=== PATIENT | female | born 1990 | race Caucasian/White ===

== ENCOUNTER → 2022-02-02 22:00 | Observation (INO) | END | disposition home or self-care (01) | LOC: 1NENULAB | PROVIDERS: ADMIT Obstetrics & Gynecology; ATTEND Obstetrics & Gynecology ==

== ENCOUNTER → 2022-02-04 23:40 | Observation (INO) | END | disposition home or self-care (01) | LOC: 1NENULAB | PROVIDERS: ADMIT Advanced Practice Midwife; ATTEND Advanced Practice Midwife ==

== ENCOUNTER 2022-02-14 07:18 | Inpatient (IN) ==
[~2022-02-14 07:18] MED LIST: Famotidine 20 MG/2 ML VIAL IVP PRN; Metoclopramide 10 MG/2 ML VIAL IVP PRN; Naloxone 0.4 MG/ML INJ IVP PRN
[2022-02-14] MEDS: Ringers Solution, Lactated 1,000 ML IVC SCH ×2 (07:49→11:00)
[2022-02-14 08:08] LABS: Basophils % 0.4 %; Eosinophils # 0.1 K/mcL (0.0-0.6); Eosinophils % 0.9 %; Hematocrit 40.6 % (35.3-44.9); Hemoglobin 13.2 g/dL (11.5-15.4); Immature Granulocytes % 0.7 % (0-4); Lymphocytes % 27.2 %; Mean Corpuscular HGB Conc 32.5 g/dL (31.6-35.5); Mean Corpuscular Hemoglobin 30.6 pg (28.0-33.3); Mean Platelet Volume 12.3 fL (9.4-12.4); Monocytes # 0.7 K/mcL (0.0-1.3); Monocytes % 6.8 %; Neutrophils # 6.9 K/mcL (1.6-8.9); Platelet Count 193 K/mcL (140-400); Red Blood Count 4.32 M/mcL (3.82-4.97); Red Cell Distribution Width 12.8 % (11.5-14.5); White Blood Count 10.8 K/mcL (4.3-11.1)
[2022-02-14] MEDS ORDERED: Naloxone 0.4 MG/ML INJ IVP PRN (08:18)
[2022-02-14] MEDS ORDERED: Penicillin G Potassium 5,000,000 UNIT in 0.9 % Sodium Chloride Mini Bag 100 ML IVPB ONE (08:18)
[2022-02-14] MEDS ORDERED: Ropivacaine/PF 0.2% 20 ML VIAL EP ONE (08:18)
[2022-02-14] MEDS ORDERED: Ondansetron 4 MG/2 ML VIAL IVP PRN (08:18)
[2022-02-14] MEDS ORDERED: EPHEDrine 50 MG/ML VIAL IVP PRN (08:18)
[2022-02-14 08:24] LABS: Creatinine,Urine 99 mg/dL; Protein/Creatinine Ratio,Urine 0.66 mg/mg (0.00-0.20)
[2022-02-14] MEDS ORDERED: Epidural Premix (fent/bupiv) 110 ML EP SCH (08:30)
[2022-02-14] MEDS ORDERED: Oxytocin 30 UNIT/503 ML BAG IVC ONE (08:30)
[2022-02-14 08:36] LABS: Influenza A PCR Negative (Negative); Influenza B PCR Negative (Negative); Resp. Syncytial Virus PCR Negative (Negative)
[2022-02-14 08:39] LABS: SARS-CoV-2 by PCR (In House) Negative (Negative)
[2022-02-14 08:53] LABS: Alanine Aminotransferase 14 Units/L (7-52); Aspartate Amino Transferase 17 Units/L (13-39); BUN/Creatinine Ratio 14 (6-26); Blood Urea Nitrogen 8 mg/dL (6-20); Lactate Dehydrogenase 197 Units/L (140-271); Uric Acid 4.4 mg/dL (2.3-7.6); eGFR For African Americans > 60 (> 60); eGFR For Non-African Americans > 60 (> 60)
[2022-02-14 09:38] LABS: Amphetamine Screen,Urine Negative ng/mL (Cutoff=1000); Barbiturate Screen,Urine Negative ng/mL (Cutoff=200); Benzodiazepines Screen,Urine Negative ng/mL (Cutoff=200); Cannabinoid Screen,Urine Negative ng/mL (Cutoff = 50); Cocaine Screen,Urine Negative ng/mL (Cutoff= 300); Opiate Screen,Urine Negative ng/mL (Cutoff=300); Phencyclidine Screen,Urine Negative ng/mL (Cutoff=25)
[2022-02-14] MEDS ORDERED: Oxytocin 30 UNIT/503 ML BAG IVC SCH ×2 (10:30→13:19)
[2022-02-14] MEDS ORDERED: Ibuprofen 600 MG TABLET PO ONE (12:00)
[2022-02-14] MEDS ORDERED: Penicillin G Potassium 2,500,000 UNIT/105 ML MLS IVPB SCH (12:00)
[2022-02-14] MEDS ORDERED: Lanolin 7 G OINT...G. TP PRN (13:19)
[2022-02-14] MEDS ORDERED: Ondansetron ODT 4 MG TAB.RAPDIS SL PRN (13:19)
[2022-02-14] MEDS: Acetaminophen 325 MG TABLET PO SCH ×2 (14:17→20:36)
[2022-02-14] MEDS: Benzocaine/Menthol 56 GM AEROSOL SPRAY TP PRN (14:18)
[2022-02-14] MEDS: Ibuprofen 600 MG TABLET PO SCH (17:55)
[2022-02-14 18:13] LABS: Basophils % 0.1 %; Eosinophils % 0.1 %; Hematocrit 30.5 % (35.3-44.9); Immature Granulocytes % 0.6 % (0-4); Lymphocytes # 1.4 K/mcL (0.6-4.6); Lymphocytes % 9.3 %; Mean Corpuscular HGB Conc 34.1 g/dL (31.6-35.5); Mean Corpuscular Hemoglobin 31.7 pg (28.0-33.3); Mean Platelet Volume 12.2 fL (9.4-12.4); Monocytes # 0.8 K/mcL (0.0-1.3); Monocytes % 5.2 %; Platelet Count 145 K/mcL (140-400); Red Blood Count 3.28 M/mcL (3.82-4.97); Red Cell Distribution Width 12.6 % (11.5-14.5); Segmented Neutrophils % 84.7 %; White Blood Count 15.3 K/mcL (4.3-11.1)
[2022-02-14 18:15] LABS: Hemoglobin 10.4 g/dL (11.5-15.4)
[2022-02-15] MEDS: Ibuprofen 600 MG TABLET PO SCH ×3 (00:56→13:07)
[2022-02-15] MEDS: Acetaminophen 325 MG TABLET PO SCH ×2 (03:47→13:07)
[2022-02-15 05:24] LABS: Basophils % 0.2 %; Eosinophils # 0.1 K/mcL (0.0-0.6); Eosinophils % 0.5 %; Hematocrit 29.6 % (35.3-44.9); Hemoglobin 9.8 g/dL (11.5-15.4); Immature Granulocytes % 0.4 % (0-4); Lymphocytes # 2.1 K/mcL (0.6-4.6); Lymphocytes % 18.8 %; Mean Corpuscular HGB Conc 33.1 g/dL (31.6-35.5); Mean Corpuscular Hemoglobin 31.6 pg (28.0-33.3); Mean Corpuscular Volume 95.5 fL (83.0-100.0); Mean Platelet Volume 12.2 fL (9.4-12.4); Monocytes # 0.7 K/mcL (0.0-1.3); Monocytes % 6.1 %; Neutrophils # 8.4 K/mcL (1.6-8.9); Platelet Count 149 K/mcL (140-400); Red Cell Distribution Width 12.9 % (11.5-14.5); White Blood Count 11.4 K/mcL (4.3-11.1)
[2022-02-15] MEDS ORDERED: MOM Conc 10 ML UD.LIQ PO ONE (08:45)
[2022-02-15 08:47] VITALS: BP 111/72; PULSE 99; TEMP 97.6; O2SAT 99
[2022-02-15] MEDS ORDERED: Prenatal Vit/FA 1 EACH TABLET PO SCH (09:00)
[2022-02-15] MEDS: Benzocaine/Menthol 56 GM AEROSOL SPRAY TP PRN (13:52)
== END 2022-02-15 14:30 | disposition home or self-care (01) | DRG 768 ==
LOC: 1NENULAB → 1NENUOBS 14:57
PROVIDERS: ADMIT Obstetrics & Gynecology; ATTEND Obstetrics & Gynecology